=== PATIENT | male | born 1955 | race Caucasian/White ===

== ENCOUNTER → 2017-05-19 | Outpatient (CLI) | payer OTHER ==
[~2017-05-19] MED LIST: ADVAIR 500/501 DISK IH; ADVAIR HFA120 INHAL1 IH; ARAVA20 MG PO; B COMPLETE1 EACH PO; BACTRIM,SEPT1 TABLET PO; BENZONATATE100 MG PO; CARDIZEM CD,CA180 MG PO; CIMZIA400 MG/2 M PO; CLONIDINE HCL0.2 MG PO; DILAUDID2 MG PO; ELAVIL25 MG PO; ENBREL50 MG/1 ML SC; FLEXERIL10 MG PO; FLORA-Q CAPSUL1 EACH PO; FOSAMAX70 MG PO; FROVA2.5 MG PO; GABAPENTIN300 MG PO; HYCODAN SYRUP480 ML PO; HYDROCODONE-HO473 ML PO; K-DUR20 MEQ PO; KLOR-CON20 MEQ PO; METFORMIN HCL500 MG PO; MIRAPEX0.5 MG PO; MUCINEX600 MG PO; NEXIUM40 MG PO; PREDNISONE1 MG PO; PREDNISONE10 MG PO; RANITIDINE HCL300 M1 PO; RANITIDINE HCL300 MG PO; SINGULAIR10 MG PO; SPIRIVA RESPIMAT4 GM IH; SUMATRIPTAN SU100 MG PO; TAMIFLU75 MG PO
== END | disposition home or self-care (01) ==
LOC: RAD 18:23
DX: I80.201 Phlebitis and thrombophlebitis of unspecified deep vessels of right lower extremity (principal); L03.115 Cellulitis of right lower limb; R06.02 Shortness of breath
CPT/HCPCS: 93971

== ENCOUNTER 2017-05-23 12:32 | Emergency (ER) | payer OTHER ==
[~2017-05-23] VITALS: Ht 190.5 cm; Wt 118.6 kg
[2017-05-23 14:07] LABS: HEMATOCRIT 36.9 % (38.0-50.0); MCH 27.5 PG (29.0-34.0); MCHC 32.8 G/DL (30.0-36.0); MEAN PLAT.VOLUME 8.8 uM^3 (9.0-12.4); RBC DIS.WIDTH-CV 16.5 % (11.8-14.6); RBC DIS.WIDTH-SD 50.8 % (39-53); WHITE BLOOD COUNT 6.9 K/uL (4.1-10.2)
[2017-05-23 14:09] LABS: MCV 83.9 FL (86-99); PLATELET COUNT 504 K/uL (156-360)
[2017-05-23 14:19] LABS: CHLORIDE 98 mEq/L (99-109); POTASSIUM 3.9 mEq/L (3.7-5.4); SODIUM 134 mEq/L (136-147)
[2017-05-23 14:21] LABS: GLUCOSE 94 mg/dL (70-99)
[2017-05-23 14:22] LABS: ANION GAP 12 MEQ/L (2-14)
[2017-05-23 14:23] LABS: TOTAL BILIRUBIN 1.1 mg/dL (0.0-1.0)
[2017-05-23 14:24] LABS: ALKALINE PHOSPHATASE 68 IU/L (3-129)
[2017-05-23 14:25] LABS: GFR ESTIMATE (CALCULATED) > 59 mL/min/
[2017-05-23 14:26] LABS: UREA NITROGEN (BUN) 13 mg/dL (9-23)
[2017-05-23 17:52] VITALS: BP 123/75
[2017-05-24] MEDS ORDERED: CYCLOBENZAPRINE10 MG PO (17:42)
[2017-05-24] MEDS ORDERED: DILTIAZEM 24HR180 M3 PO (17:43)
[2017-05-24] MEDS ORDERED: GABAPENTIN400 MG PO (17:45)
[2017-05-24] MEDS ORDERED: NEXIUM40 MG PO (17:46)
[2017-05-24] MEDS ORDERED: CLONIDINE HCL0.2 MG PO (17:46)
[2017-05-24] MEDS ORDERED: DILAUDID2 MG PO (17:47)
[2017-05-24] MEDS ORDERED: METFORMIN HCL1000 MG PO (17:48)
[2017-05-24] MEDS ORDERED: ZANTAC300 MG PO (17:48)
[2017-05-24] MEDS ORDERED: MIRAPEX1 MG PO (18:15)
[2017-05-24] MEDS ORDERED: BACTRIM,SEPT1 TABLET PO (18:16)
[2017-05-24] MEDS ORDERED: SINGULAIR10 MG PO (18:17)
[2017-05-24] MEDS ORDERED: POTASSIUM CHLO20 ME2 PO (18:17)
[2017-05-24] MEDS ORDERED: INVOKANA100 MG PO (18:18)
== END 2017-05-23 17:53 | disposition home or self-care (01) ==
LOC: EME 12:32
DX: L03.115 Cellulitis of right lower limb (principal); M06.9 Rheumatoid arthritis, unspecified; Z88.0 Allergy status to penicillin
CPT/HCPCS: 71020; 80053; 85027; 99281; 99284; J0696

== ENCOUNTER 2017-05-30 14:47 | Inpatient (IN) | payer OTHER ==
[~2017-05-30] VITALS: Ht 190.5 cm; Wt 111.4 kg
[~2017-05-30 14:47] MED LIST changes: +CYCLOBENZAPRINE10 MG PO; +DILTIAZEM 24HR180 M3 PO; +GABAPENTIN400 MG PO; +INVOKANA100 MG PO; +METFORMIN HCL1000 MG PO; +MIRAPEX1 MG PO; +POTASSIUM CHLO20 ME2 PO; +ZANTAC300 MG PO
[2017-05-30 15:30] LABS: EOSINOPHIL (%) 0.6 % (0-5); EOSINOPHIL COUNT 0.1 K/uL (0-0.3); HEMATOCRIT 35.6 % (38.0-50.0); IMMATURE GRANULOCYTE (%) 0.6 % (0.0-0.7); IMMATURE GRANULOCYTE COUNT 0.1 K/uL; INSTRUMENT ABS NEUTROPHIL CT 9.5 K/uL; LYMPHOCYTE COUNT 2.1 K/uL (1.0-2.8); MCH 27.2 PG (29.0-34.0); MCHC 33.1 G/DL (30.0-36.0); MONOCYTE (%) 11.8 % (3-12); MONOCYTE COUNT 1.6 K/uL (0-0.8); NEUTROPHIL (%) 71.1 % (45-76); NEUTROPHIL COUNT 9.5 K/uL (1.8-6.4); PLATELET COUNT 450 K/uL (156-360); RBC DIS.WIDTH-CV 16.6 % (11.8-14.6); RBC DIS.WIDTH-SD 49.5 % (39-53); RED BLOOD COUNT 4.34 M/uL (4.00-5.50); WHITE BLOOD COUNT 13.4 K/uL (4.1-10.2)
[2017-05-30 15:42] LABS: CHLORIDE 93 mEq/L (99-109); POTASSIUM 3.3 mEq/L (3.7-5.4); SODIUM 130 mEq/L (136-147)
[2017-05-30 15:43] LABS: GLUCOSE 127 mg/dL (70-99)
[2017-05-30 15:45] LABS: ANION GAP 13 MEQ/L (2-14)
[2017-05-30 15:47] LABS: GFR ESTIMATE (CALCULATED) > 59 mL/min/
[2017-05-30 15:48] LABS: UREA NITROGEN (BUN) 12 mg/dL (9-23)
[2017-05-30 15:59] LABS: TROP-I INTERPRETATION NEGATIVE; TROPONIN-I 0.02 ng/mL (0.0-0.30)
[2017-05-30 20:00] VITALS: BP 138/77
[2017-05-30] MEDS ORDERED: MAXZIDE 75/501 EACH PO (20:04)
[2017-05-30] MEDS ORDERED: ADVIL200 MG PO (20:04)
[2017-05-30] MEDS ORDERED: LASIX20 MG PO (20:05)
[2017-05-30] MEDS ORDERED: ROCEPHIN1 GM/50 ML IV (20:06)
[2017-05-30] MEDS ORDERED: PLAQUENIL200 MG PO (20:07)
[2017-05-30] MEDS ORDERED: FLORASTOR250 MG PO (20:07)
[2017-05-31 00:03] VITALS: BP 165/85
[2017-05-31 07:07] LABS: HEMATOCRIT 32.2 % (38.0-50.0); MCH 28.1 PG (29.0-34.0); MCHC 33.5 G/DL (30.0-36.0); MCV 83.6 FL (86-99); MEAN PLAT.VOLUME 9.8 uM^3 (9.0-12.4); PLATELET COUNT 375 K/uL (156-360); RBC DIS.WIDTH-CV 16.9 % (11.8-14.6); RBC DIS.WIDTH-SD 51.2 % (39-53); RED BLOOD COUNT 3.85 M/uL (4.00-5.50); WHITE BLOOD COUNT 8.2 K/uL (4.1-10.2)
[2017-05-31 07:40] LABS: ANION GAP 11 MEQ/L (2-14); CHLORIDE 98 MEQ/L (99-109); GFR ESTIMATE (CALCULATED) > 59 mL/min/; POTASSIUM 2.7 MEQ/L (3.7-5.4); SAMPLE HEMOLYSIS CHECK 0; SAMPLE ICTERIC CHECK 0; SAMPLE LIPEMIA CHECK 0; UREA NITROGEN (BUN) 12 mg/dL (9-23)
[2017-05-31 07:41] LABS: POINT-OF-CARE METER ID UU14174225
[2017-05-31 07:51] LABS: GLUCOSE 89 mg/dL (70-99); SODIUM 137 MEQ/L (136-147)
[2017-05-31 08:01] VITALS: BP 152/76
[2017-05-31 08:18] LABS: ADD MIUA? NO; BILIRUBIN NEGATIVE; BLOOD NEGATIVE; COLOR YELLOW ((YELLOW)); GLUCOSE (STRIP) >=500; KETONES NEGATIVE; LEUKOCYTES NEGATIVE; NITRITE NEGATIVE; PROTEIN (STRIP) NEGATIVE; SPECIFIC GRAVITY 1.005 (1.000-1.030); UCUL ADDED? NO; UROBILINOGEN 0.2 MG/DL (0.2-1.0)
[2017-05-31 11:32] LABS: C DIFF TOXIN NEGATIVE (NEGATIVE); PROBE CHECK PASS; SPECIMEN PROCESSING CONTROL PASS
[2017-05-31 11:48] LABS: POINT-OF-CARE METER ID UU14174225
[2017-05-31 16:28] VITALS: BP 130/75
[2017-05-31 17:34] LABS: POINT-OF-CARE METER ID UU14174225
[2017-05-31 19:36] VITALS: BP 122/74
[2017-05-31 23:34] VITALS: BP 140/86
[2017-06-01 03:52] VITALS: BP 121/74
[2017-06-01 08:13] VITALS: BP 146/78
[2017-06-01 08:55] LABS: ANION GAP 11 MEQ/L (2-14); CHLORIDE 95 MEQ/L (99-109); GFR ESTIMATE (CALCULATED) > 59 mL/min/; GLUCOSE 97 mg/dL (70-99); SAMPLE HEMOLYSIS CHECK 0; SAMPLE ICTERIC CHECK 0; SAMPLE LIPEMIA CHECK 0; SODIUM 132 MEQ/L (136-147); UREA NITROGEN (BUN) 11 mg/dL (9-23); VANCOMYCIN, TROUGH 14.2 MCG/ML (10-20)
[2017-06-01 08:56] LABS: POTASSIUM 3.3 MEQ/L (3.7-5.4)
[2017-06-01 11:19] VITALS: BP 137/86
[2017-06-01 15:08] VITALS: BP 121/65
[2017-06-01 19:39] VITALS: BP 128/80
[2017-06-01 22:58] VITALS: BP 123/74
[2017-06-02 03:59] VITALS: BP 109/66
[2017-06-02 06:17] LABS: HEMATOCRIT 29.6 % (38.0-50.0); MCH 27.7 PG (29.0-34.0); MCHC 33.1 G/DL (30.0-36.0); MCV 83.6 FL (86-99); MEAN PLAT.VOLUME 9.6 uM^3 (9.0-12.4); PLATELET COUNT 333 K/uL (156-360); RBC DIS.WIDTH-CV 16.6 % (11.8-14.6); RBC DIS.WIDTH-SD 50.3 % (39-53); RED BLOOD COUNT 3.54 M/uL (4.00-5.50); WHITE BLOOD COUNT 3.6 K/uL (4.1-10.2)
[2017-06-02 06:50] LABS: ANION GAP 9 MEQ/L (2-14); CHLORIDE 102 MEQ/L (99-109); GFR ESTIMATE (CALCULATED) > 59 mL/min/; GLUCOSE 84 mg/dL (70-99); POTASSIUM 3.9 MEQ/L (3.7-5.4); SAMPLE HEMOLYSIS CHECK 0; SAMPLE ICTERIC CHECK 0; SAMPLE LIPEMIA CHECK 0; SODIUM 137 MEQ/L (136-147); UREA NITROGEN (BUN) 9 mg/dL (9-23)
[2017-06-02 07:40] LABS: POINT-OF-CARE METER ID UU14174225
[2017-06-02 07:55] VITALS: BP 142/79
[2017-06-02 11:48] VITALS: BP 136/74
[2017-06-02 12:29] LABS: POINT-OF-CARE METER ID UU14174225
[2017-06-02 15:16] VITALS: BP 140/70
[2017-06-02 16:52] LABS: POINT-OF-CARE METER ID UU14174225
[2017-06-02 19:53] VITALS: BP 165/83
[2017-06-02 23:31] VITALS: BP 134/74
[2017-06-03 04:15] VITALS: BP 139/79
[2017-06-03 08:02] LABS: POINT-OF-CARE METER ID UU14174225
[2017-06-03 08:37] VITALS: BP 148/85
[2017-06-03] MEDS ORDERED: ZYVOX600 MG PO (09:27)
[2017-06-03] MEDS ORDERED: METOPROLOL TART25 MG PO (09:27)
[2017-06-03] MEDS ORDERED: LISINOPRIL10 MG PO (09:27)
[2017-06-03 11:14] VITALS: BP 132/84
[2017-06-03 12:27] LABS: POINT-OF-CARE METER ID UU14174225
== END 2017-06-03 15:27 | disposition home or self-care (01) | DRG 872 ==
LOC: EME 14:47 → EDOF 17:07 → 5SOUTH 17:07
PROVIDERS: Emergency Medicine; Hospitalist; Internal Medicine
DX: A41.9 Sepsis, unspecified organism (principal); R65.20 Severe sepsis without septic shock; L03.115 Cellulitis of right lower limb; L03.116 Cellulitis of left lower limb; E87.1 Hypo-osmolality and hyponatremia; E87.6 Hypokalemia; D63.8 Anemia in other chronic diseases classified elsewhere; I11.0 Hypertensive heart disease with heart failure; I50.32 Chronic diastolic (congestive) heart failure; I95.9 Hypotension, unspecified; E11.9 Type 2 diabetes mellitus without complications; M66.0 Rupture of popliteal cyst; M06.9 Rheumatoid arthritis, unspecified; M19.90 Unspecified osteoarthritis, unspecified site; G25.81 Restless legs syndrome; G72.0 Drug-induced myopathy; T38.0X5A Adverse effect of glucocorticoids and synthetic analogues, initial encounter; J45.909 Unspecified asthma, uncomplicated; G43.909 Migraine, unspecified, not intractable, without status migrainosus; K21.0 Gastro-esophageal reflux disease with esophagitis; L40.9 Psoriasis, unspecified; R00.0 Tachycardia, unspecified; R19.7 Diarrhea, unspecified; Z68.30 Body mass index [BMI] 30.0-30.9, adult; E66.9 Obesity, unspecified; Z79.4 Long term (current) use of insulin; Z79.52 Long term (current) use of systemic steroids; Z79.84 Long term (current) use of oral hypoglycemic drugs; Z88.1 Allergy status to other antibiotic agents
CPT/HCPCS: 71010; 73590; 80048; 80048 91; 80202; 81003; 82533 91; 82948; 83605; 83735; 84484; 85025; 85027; 85651; 86140; 87040; 87493; 87506; 93005; 93306; 93970; 94760; 96365; 99281; 99285; J0696; J1170; J1650; J1815; J1885; J2405; J3010; J3370; J3475; J3480; J7030; J7050; S0028

== ENCOUNTER 2018-01-07 23:21 | Emergency (ER) | payer OTHER ==
[~2018-01-07] VITALS: Ht 190.5 cm; Wt 112.9 kg
[~2018-01-07 23:21] MED LIST changes: +ADVIL200 MG PO; +FLORASTOR250 MG PO; +LASIX20 MG PO; +LISINOPRIL10 MG PO; +MAXZIDE 75/501 EACH PO; +METOPROLOL TART25 MG PO; +PLAQUENIL200 MG PO; +ROCEPHIN1 GM/50 ML IV; +ZYVOX600 MG PO
[2018-01-08 00:01] LABS: BASOPHIL (%) 0.3 % (0-1); EOSINOPHIL (%) 3.1 % (0-5); EOSINOPHIL COUNT 0.2 K/uL (0-0.3); HEMATOCRIT 36.6 % (38.0-50.0); HEMOGLOBIN 12.4 G/DL (12.5-16.6); IMMATURE GRANULOCYTE (%) 0.3 % (0.0-0.7); LYMPHOCYTE (%) 38.3 % (15-42); LYMPHOCYTE COUNT 2.8 K/uL (1.0-2.8); MCHC 33.9 G/DL (30.0-36.0); MCV 85.7 FL (86-99); MONOCYTE (%) 10.2 % (3-12); MONOCYTE COUNT 0.7 K/uL (0-0.8); NEUTROPHIL (%) 47.8 % (45-76); NEUTROPHIL COUNT 3.4 K/uL (1.8-6.4); PLATELET COUNT 336 K/uL (156-360); RBC DIS.WIDTH-CV 18.6 % (11.8-14.6); RED BLOOD COUNT 4.27 M/uL (4.00-5.50); WHITE BLOOD COUNT 7.2 K/uL (4.1-10.2)
[2018-01-08 00:06] LABS: INTER. NORMALIZED RATIO 1.2
[2018-01-08 00:08] LABS: PTT 38.1 SEC (25-37)
[2018-01-08 00:23] LABS: ALBUMIN 3.9 G/DL (3.2-4.8); CHLORIDE 106 MEQ/L (99-109); POTASSIUM 3.8 MEQ/L (3.7-5.4); SODIUM 139 MEQ/L (136-147); TOTAL BILIRUBIN 1.8 MG/DL (0.0-1.0)
[2018-01-08 00:29] LABS: ALKALINE PHOSPHATASE 76 IU/L (3-129); ALT (GPT) 9 IU/L (3-49); AST (GOT) 17 IU/L (2-34); CREATININE 0.7 MG/DL (0.6-1.3); GFR ESTIMATE (CALCULATED) > 59 mL/min/ (58.99-99999); GLUCOSE 120 mg/dL (70-99); LIPASE 32 U/L (1.0-51.0); TOTAL PROTEIN 7.1 G/DL (6.4-8.3); UREA NITROGEN (BUN) 18 mg/dL (9-23)
[2018-01-08] MEDS ORDERED: OXAYDO5 MG PO (07:05)
[2018-01-08] MEDS ORDERED: FLEXERIL10 MG PO (07:05)
[2018-01-08 08:44] VITALS: BP 130/80
[2018-01-09] MEDS ORDERED: HYDROCORTISONE10 MG PO (16:39)
[2018-01-09] MEDS ORDERED: HYDROCORTISONE5 MG PO (16:40)
[2018-01-09] MEDS ORDERED: ROXICODONE5 MG PO (16:40)
[2018-01-09] MEDS ORDERED: FLEXERIL10 MG PO (16:42)
== END 2018-01-08 08:46 | disposition home or self-care (01) ==
LOC: EME 23:21
PROVIDERS: Emergency Medicine
DX: L03.116 Cellulitis of left lower limb (principal); R22.42 Localized swelling, mass and lump, left lower limb; Z86.718 Personal history of other venous thrombosis and embolism; Z79.01 Long term (current) use of anticoagulants; I10 Essential (primary) hypertension; J45.909 Unspecified asthma, uncomplicated; K21.9 Gastro-esophageal reflux disease without esophagitis; M06.9 Rheumatoid arthritis, unspecified; Z88.0 Allergy status to penicillin; Z88.1 Allergy status to other antibiotic agents; Z88.5 Allergy status to narcotic agent
CPT/HCPCS: 80053; 83605; 83690; 85025; 85610; 85730; 87040; 93971; 99281; 99284; J3010; J3370